=== PATIENT | male | born 1980 | race Caucasian/White ===

== ENCOUNTER 2017-03-11 11:38 | Emergency (ER) | payer OTHER ==
[~2017-03-11] VITALS: Ht 175.3 cm; Wt 74.8 kg
[2017-03-11 11:42] VITALS: BP 126/85
[2017-03-11] MEDS ORDERED: AUGMENTIN 875-1 EACH PO (12:43)
== END 2017-03-11 12:59 | disposition home or self-care (01) ==
LOC: ER 11:38
DX: L70.9 Acne, unspecified (principal); R51 Headache